=== PATIENT | male | born 1980 | race Caucasian/White ===

== ENCOUNTER 2016-11-14 12:36 | Emergency (ER) | payer BC, MEDICAID, OTHER ==
[2016-11-14] MEDS ORDERED: ALBUTEROL NEB 2.5 MG/3 ML INH STA (12:44)
--- NOTE | 2016-11-14 13:17 | ED Physician Documentation ---
PD HPI DYSPNEA - Stated complaint Stated Complaint: ASTHMA - Chief complaint Chief Complaint: Resp - History obtained from History obtained from: Patient - History of Present Illness Timing - onset: How many days ago (several) Timing - onset during: Rest Timing - duration: Days (several) Timing - details: Gradual onset Pain level max: 0 Pain level now: 0 Inciting event(s): Out of meds Improved by: Rest Worsened by: Exertion Associated symptoms: Cough, Wheezing. No: Fever, Chest pain / discomfort, Palpitations, Diaphoresis, Bilateral edema Similar symptoms before: Diagnosis (asthma) Recently seen: Not recently seen Review of Systems Constitutional: denies: Fever, Chills Nose: denies: Rhinorrhea / runny nose Throat: denies: Sore throat Cardiac: denies: Chest pain / pressure Respiratory: reports: Cough, Wheezing GI: denies: Abdominal Pain, Nausea, Vomiting, Diarrhea Skin: denies: Rash Musculoskeletal: denies: Neck pain, Back pain Neurologic: denies: Headache PD PAST MEDICAL HISTORY - Past Medical History Past Medical History: Yes Respiratory: Asthma - Past Surgical History Past Surgical History: No - Present Medications Home Medications: Ambulatory Orders Medication Instructions Recorded Confirmed Albuterol Sulf [Ventolin Hfa 2 puffs INH Q4HR PRN #1 inhaler 11/14/16 Inhaler] Prednisone 40 mg PO DAILY #10 tablet 11/14/16 - Allergies Allergies/Adverse Reactions: Allergies Allergy/AdvReac Type Severity Reaction Status Date / Time No Known Drug Allergies Allergy Verified 11/14/16 13:11 - Social History Does the pt smoke?: No Smoking Status: Never smoker Does the pt drink ETOH?: No Does the pt have substance abuse?: Yes Substance Use and Type: Marijuana PD ED PE NORMAL - Vitals Vital signs reviewed: Yes - General General: Alert and oriented X 3, No acute distress, Well developed/nourished - HEENT HEENT: PERRL, Moist mucous membranes - Neck Neck: Supple, no meningeal sign - Cardiac Cardiac: RRR, Strong equal pulses - Respiratory Respiratory: No respiratory distress, Other (wheezing) - Abdomen Abdomen: Soft, Non tender, Non distended - Derm Derm: Warm and dry - Extremities Extremities: No edema, No calf tenderness / cord - Neuro Neuro: Alert and oriented X 3 - Psych Psych: Normal mood, Normal affect Results - Vitals Vitals: Vital Signs - 24 hr 11/14/16 11/14/16 11/14/16 12:45 13:10 14:20 Temperature 37.4 C Heart Rate 69 76 87 Respiratory 18 16 16 Rate Blood Pressure 160/92 H O2 Saturation 100 11/14/16 15:27 Temperature 36.6 C Heart Rate 77 Respiratory 20 Rate Blood Pressure 139/88 H O2 Saturation 99 Oxygen O2 Source Room air - Rads (name of study) cxr Radiology: Prelim report reviewed, EMP read contemporaneously, See rad report ( Bilateral central bronchial wall thickening could be compatible with reactive airways disease or bronchitis. ) PD MEDICAL DECISION MAKING - ED course Complexity details: reviewed results, re-evaluated patient, considered differential, d/w patient, d/w family ED course: Patient is a 36-year-old male who presents to the emergency department with an acute asthma exacerbation. Given prednisone and nebulizer treatments here. No acute findings on chest x-ray. Breathing improved. Patient is well-appearing, nontoxic. Afebrile. No hypoxia. We will refill his inhaler and place on steroids for the next few days. We will have him follow-up with his doctor for further evaluation and care. Patient counseled regarding signs and symptoms for which I believe and urgent re-evaluation would be necessary. Patient with good understanding of and agreement to plan and is comfortable going home at this time This document was made in part using voice recognition software. While efforts are made to proofread this document, sound alike and grammatical errors may occur. Departure - Departure Disposition: 01 Home, Self Care Clinical Impression: Asthma Qualifiers: Asthma severity: unspecified severity Asthma complication type: with acute exacerbation Qualified Code(s): J45.901 - Unspecified asthma with (acute) exacerbation Condition: Good Instructions: ED Reactive Airway Disease Follow-Up: your,doctor in 1 week [Other] Prescriptions: Albuterol Sulf [Ventolin Hfa Inhaler] 2 puffs INH Q4HR PRN #1 inhaler PRN Reason: Wheezing Prednisone 40 mg PO DAILY #10 tablet Comments: Return if you worsen. Take the prednisone at home and use the inhaler as needed. This should improve over the next 24 hours. Discharge Date/Time: 11/14/16 15:27
[2016-11-14] MEDS ORDERED: IPRATROPIUM/ALBUTEROL 3 ML NEB INH STA (13:28)
[2016-11-14] MEDS ORDERED: predniSONE 20 MG TABLET PO STA (13:28)
--- NOTE | 2016-11-14 15:10 | XRAY Preliminary Report ---
Exam: XR Chest 2 View PA/LAT IMPRESSION: 1. Bilateral central bronchial wall thickening could be compatible with reactive airways disease or b ronchitis. [facility] SITE ID: [id number]
--- NOTE | 2016-11-14 15:13 | XRAY Report ---
EXAM: CHEST RADIOGRAPHY EXAM DATE: 11/14/2016 02:58 PM. CLINICAL HISTORY: Cough, wheeze. COMPARISON: 03/04/2010. TECHNIQUE: 2 views. FINDINGS: Lungs/Pleura: Bilateral central bronchial wall thickening could be compatible with reactive airways d isease or bronchitis. No evidence for pneumonia. No pleural effusions or pneumothorax. Mediastinum: Heart and mediastinal contours are unremarkable. Other: None. IMPRESSION: 1. Bilateral central bronchial wall thickening could be compatible with reactive airways disease or b ronchitis. [facility] Referring Provider Line: [phone] SITE ID: [id number]
[2016-11-14 15:29] VITALS: BP 139/88
== END 2016-11-14 15:27 | disposition home or self-care (01) ==
LOC: ED 12:36
DX: J45.901 Unspecified asthma with (acute) exacerbation (principal)
CPT/HCPCS: 71020; 94640; 99283; J7512; J7613; J7620

== ENCOUNTER 2020-07-24 07:00 | Outpatient (CLI) | payer MEDICAID ==
[2020-07-24 20:48] LABS: HCT - HEMATOCRIT 43.7 % (42.0-52.0); HGB - HEMOGLOBIN 14.3 g/dL (14.0-18.0); MEAN CORPUSCULAR HEMOGLOBIN 28.2 pg (27.0-31.0); MEAN CORPUSCULAR HGB CONC 32.7 g/dL (32.0-36.0); MEAN CORPUSCULAR VOLUME 86.2 fL (80.0-94.0); MEAN PLATELET VOLUME 9.7 fL (7.4-11.4); RED BLOOD COUNT 5.07 10^6/uL (4.70-6.10); RED CELL DISTRIBUTION WIDTH 11.7 % (12.0-15.0); WHITE BLOOD COUNT 11.4 x10^3/uL (4.8-10.8)
[2020-07-24 20:57] LABS: CRP - C-REACTIVE PROTEIN 13.2 mg/dL (0-1.0)
[2020-07-24 21:00] LABS: URIC ACID 3.4 mg/dL (2.6-7.2)
[2020-07-24 21:07] LABS: RHEUMATOID FACTOR NEGATIVE (Negative)
[2020-07-27 13:17] LABS: ANA SCREEN NEGATIVE (NEGATIVE)
[2020-07-27 15:07] LABS: DNA (DS) ANTIBODY <1 IU/mL
[2020-07-27 21:36] LABS: CYCLIC CITRULL PEPTIDE CCP IGG <16 UNITS
== END 2020-07-24 23:59 | disposition home or self-care (01) ==
LOC: LAB.N 07:00
PROVIDERS: ATTEND Family Medicine
DX: M25.50 Pain in unspecified joint (principal)
CPT/HCPCS: 36415; 84550; 85025; 85027; 85651; 86038; 86140; 86200; 86225; 86430

== ENCOUNTER 2020-07-27 11:22 | Emergency (ER) | payer MEDICAID ==
--- OUTSIDE RECORDS SUMMARY | 2020-07-27 11:26 | EXTERNAL MEDICAL SUMMARY RPT | Continuity of Care Document ---
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 Anastasiya Unavailable Unavailable Problems date description facility [id number] HEIDE SCREEN WITH REFLEX TITER & PANEL A ll 84744336 CBC W/O Diff/Plt All [id number] CRP All 95495245 DNA (ds) ANTIBODY All [id number] Joint pain All 58897096 Pain in joint, site unspecified All 90300211 RHEUMATOID FACTOR All 96488893 Anti CCP All 42876966 Sed Rate All 19083253 Never smoker All 19812528 Pain in unspecified joint All 79466631 Uric Acid All 80023337 Inflammatory polyarthropathy All 34128475 Unspecified inflammatory polyarthropath y All Medications date description facility [id number] [facility] All [id number] M[facility]OX[facility] All [id number] [facility] SUL[facility] All 51098481 [facility] All [id number] MELOXICAM All 71227461 ALBUTEROL SULFATE All 03394614 [facility] All 50469875 MELOXICAM All 41560289 ALBUTEROL SULFATE All 67748536 [facility] All 53776021 MELOXICAM All 83764386 ALBUTEROL SULFATE All 55485047 [facility] All [id number] MELOXICAM All 76649525 ALBUTEROL SULFATE All 04258605 [facility] All [id number] MELOXICAM All 65186683 ALBUTEROL SULFATE All Results test status date ordered by attending specimen armond e T unknown 57377064 unknown unknown unknown [id number]_NZKBN unknown 33707019 unknown unknown unknown IN T unknown 57930908 unknown unknown unknown T unknown 38730095 unknown unknown unknown T unknown 70134508 unknown unknown unknown T unknown 50618563 unknown unknown unknown T unknown 22733040 unknown unknown unknown T unknown 81533504 unknown unknown unknown T unknown 45755616 unknown unknown unknown T unknown 70968418 unknown unknown unknown T unknown 92933762 unknown unknown unknown T unknown 85903004 unknown unknown unknown T unknown 58519489 unknown unknown unknown T unknown 60074590 unknown unknown unknown red_blood_cell_distrib unknown 74799130 unknown unknown unknown ution_width mean_corpuscular_hemog unknown 33863053 unknown unknown unknown lobin_RBC mean_corpuscular_hemog unknown 33040340 unknown unknown unknown lobin_concentration_rbc C_reactive_protein_Mas unknown 70789737 unknown unknown unknown s_volume_in_Serum_or_Pl asma C-reactive_protein_ser unknown 40046790 unknown unknown unknown um mean_platelet_volume unknown 99081433 unknown unknown un known Urate_Mass_volume_in_S unknown 90221861 unknown unknown unknown erum_or_Plasma mean_corpuscular_volum unknown 84049637 unknown unknown unknown e_RBC Erythrocyte_sedimentat unknown 48604510 unknown unknown unknown ion_rate_by_Westergren_ method Hematocrit_Volume_Frac unknown 12221999 unknown unknown unknown tion_of_Blood_by_Automa ted_count uric_acid_serum unknown 88300434 unknown unknown unknown erythrocyte_sedimentat unknown 85069175 unknown unknown unknown ion_rate hematocrit_blood unknown 63373613 unknown unknown unknow n hemoglobin_blood unknown 41357036 unknown unknown unknow n platelet_count unknown 37228645 unknown unknown unknown Leukocytes_volume_in_B unknown 41648097 unknown unknown unknown lood_by_Automated_count erythrocyte_RBC_count unknown 25809966 unknown unknown u nknown leukocyte_count_blood unknown 62576932 unknown unknown u nknown Hemoglobin_Mass_volume unknown 69341079 unknown unknown unknown _in_Blood Platelet_mean_volume_E unknown 19201547 unknown unknown unknown ntitic_volume_in_Blood_ by_Rees-Cora Platelets_volume_in_Bl unknown 20849398 unknown unknown unknown ood_by_Automated_count MCH_Entitic_mass_by_Au unknown 36033251 unknown unknown unknown tomated_count MCV_Entitic_volume_by_ unknown 15445323 unknown unknown unknown Automated_count Erythrocyte_distributi unknown 12071517 unknown unknown unknown on_width_Ratio_by_Autom ated_count Erythrocytes_volume_in unknown 33443620 unknown unknown unknown _Blood_by_Automated_cou nt T unknown 08096312 unknown unknown unknown NVG_-_B-SZKMZZZS_OPYKN unknown 90413660 unknown unknown unknown IN T unknown 29918223 unknown unknown unknown T unknown 86132671 unknown unknown unknown T unknown 48231772 unknown unknown unknown T unknown 44855401 unknown unknown unknown T unknown 51975431 unknown unknown unknown T unknown 35563685 unknown unknown unknown T unknown 70761200 unknown unknown unknown T unknown 46574218 unknown unknown unknown T unknown 84776402 unknown unknown unknown T unknown 66999709 unknown unknown unknown T unknown 09273507 unknown unknown unknown T unknown 61001493 unknown unknown unknown red_blood_cell_distrib unknown 18581711 unknown unknown unknown ution_width mean_corpuscular_hemog unknown 02075023 unknown unknown unknown lobin_RBC mean_corpuscular_hemog unknown 76867200 unknown unknown unknown lobin_concentration_rbc C_reactive_protein_Mas unknown 57058960 unknown unknown unknown s_volume_in_Serum_or_Pl asma C-reactive_protein_ser unknown 86534474 unknown unknown unknown um mean_platelet_volume unknown 17001346 unknown unknown un known Urate_Mass_volume_in_S unknown 94833928 unknown unknown unknown erum_or_Plasma mean_corpuscular_volum unknown 85331358 unknown unknown unknown e_RBC Erythrocyte_sedimentat unknown 77796789 unknown unknown unknown ion_rate_by_Westergren_ method Hematocrit_Volume_Frac unknown 18197344 unknown unknown unknown tion_of_Blood_by_Automa ted_count uric_acid_serum unknown 12386884 unknown unknown unknown erythrocyte_sedimentat unknown 64595986 unknown unknown unknown ion_rate hematocrit_blood unknown 52385957 unknown unknown unknow n hemoglobin_blood unknown 73376939 unknown unknown unknow n platelet_count unknown 54622645 unknown unknown unknown Leukocytes_volume_in_B unknown 67793632 unknown unknown unknown lood_by_Automated_count erythrocyte_RBC_count unknown 89685208 unknown unknown u nknown leukocyte_count_blood unknown 09396419 unknown unknown u nknown Hemoglobin_Mass_volume unknown 18406563 unknown unknown unknown _in_Blood Platelet_mean_volume_E unknown 72715036 unknown unknown unknown ntitic_volume_in_Blood_ by_Rees-Cora Platelets_volume_in_Bl unknown 80086108 unknown unknown unknown ood_by_Automated_count MCH_Entitic_mass_by_Au unknown 45630088 unknown unknown unknown tomated_count MCV_Entitic_volume_by_ unknown 87500644 unknown unknown unknown Automated_count Erythrocyte_distributi unknown 20200724 unknown unknown unknown on_width_Ratio_by_Autom ated_count Erythrocytes_volume_in unknown 20200724 unknown unknown unknown _Blood_by_Automated_cou nt facility observation status value reference units lab abnor mal line range code notes All T unknown 13.2 unknown mg/dL CRP unknown unkn own All PRH_-_S-ADYQQ unknown 13.2 unknown mg/dL CRP_W unknow n unknown IVE_PROTEIN GH_ All T unknown 45 unknown mm/h ESR unknown unkn own All T unknown 43.7 unknown % HCT unknown unkn own All T unknown 14.3 unknown g/dL HGB unknown unkn own All T unknown 28.2 unknown pg MCH unknown unkn own All T unknown 32.7 unknown g/dL MCHC unknown unkn own All T unknown 86.2 unknown fL MCV unknown unkn own All T unknown 9.7 unknown fL MPV unknown unkn own All T unknown 487 10 unknown PLT unknown unkn own 3/UL All T unknown 5.07 unknown RBC unknown unkn own 10 6/UL All T unknown 11.7 unknown % RDW unknown unkn own All T unknown 3.4 unknown mg/dL URIC unknown unkn own All T unknown 11.4 unknown WBC unknown unkn own X10 3/UL All red_blood_cel unknown 11.7 unknown % _1030 unknow n unknown l_distribution _width All mean_corpuscu unknown 28.2 unknown pg _1031 unknow n unknown lar_hemoglobin _RBC All mean_corpuscu unknown 32.7 unknown g/dL _1702 unknow n unknown lar_hemoglobin 9 _concentration _rbc All C_reactive_pr unknown 13.2 unknown mg/dL _1988 unknow n unknown otein_Mass_vol -5 ume_in_Serum_o r_Plasma All C-reactive_pr unknown 13.2 unknown mg/dL _2704 unknow n unknown otein_serum All mean_platelet unknown 9.7 unknown fL _2784 unknow n unknown _volume All Urate_Mass_vo unknown 3.4 unknown mg/dL _3084 unknow n unknown lume_in_Serum_ -1 or_Plasma All mean_corpuscu unknown 86.2 unknown fL _315 unknow n unknown lar_volume_RBC All Erythrocyte_s unknown 45 unknown mm/h _4537 unknow n unknown edimentation_r -7 ate_by_Westerg ren_method All Hematocrit_Vo unknown 43.7 unknown % _4544 unknow n unknown lume_Fraction_ -3 of_Blood_by_Au tomated_count All uric_acid_ser unknown 3.4 unknown mg/dL _46 unknow n unknown um All erythrocyte_s unknown 45 unknown mm/h _63 unknow n unknown edimentation_r ate All hematocrit_bl unknown 43.7 unknown % _64 unknow n unknown ood All hemoglobin_bl unknown 14.3 unknown g/dL _65 unknow n unknown ood All platelet_coun unknown 487 10 unknown _66 unknow n unknown t 3/UL All Leukocytes_vo unknown 11.4 unknown _6690 unknow n unknown lume_in_Blood_ X10 -2 by_Automated_c 3/UL ount All erythrocyte_R unknown 5.07 unknown _67 unknow n unknown BC_count 10 6/UL All leukocyte_cou unknown 11.4 unknown _68 unknow n unknown nt_blood X10 3/UL All Hemoglobin_Ma unknown 14.3 unknown g/dL _718- unknow n unknown ss_volume_in_B 7 lood All Platelet_mean unknown 9.7 unknown fL _776- unknow n unknown _volume_Entiti 5 c_volume_in_Bl ood_by_Rees-Ec ker All Platelets_vol unknown 487 10 unknown _777- unknow n unknown ume_in_Blood_b 3/UL 3 y_Automated_co unt All MCH_Entitic_m unknown 28.2 unknown pg _785- unknow n unknown ass_by_Automat 6 ed_count All MCV_Entitic_v unknown 86.2 unknown fL _787- unknow n unknown olume_by_Autom 2 ated_count All Erythrocyte_d unknown 11.7 unknown % _788- unknow n unknown istribution_wi 0 dth_Ratio_by_A utomated_count All Erythrocytes_ unknown 5.07 unknown _789- unknow n unknown volume_in_Bloo 10 6/UL 8 d_by_Automated _count All T unknown 13.2 unknown mg/dL CRP unknown unkn own All BWL_-_G-BMNDF unknown 13.2 unknown mg/dL CRP_W unknow n unknown IVE_PROTEIN GH_ All T unknown 45 unknown mm/h ESR unknown unkn own All T unknown 43.7 unknown % HCT unknown unkn own All T unknown 14.3 unknown g/dL HGB unknown unkn own All T unknown 28.2 unknown pg MCH unknown unkn own All T unknown 32.7 unknown g/dL MCHC unknown unkn own All T unknown 86.2 unknown fL MCV unknown unkn own All T unknown 9.7 unknown fL MPV unknown unkn own All T unknown 487 10 unknown PLT unknown unkn own 3/UL All T unknown 5.07 unknown RBC unknown unkn own 10 6/UL All T unknown 11.7 unknown % RDW unknown unkn own All T unknown 3.4 unknown mg/dL URIC unknown unkn own All T unknown 11.4 unknown WBC unknown unkn own X10 3/UL All red_blood_cel unknown 11.7 unknown % _1030 unknow n unknown l_distribution _width All mean_corpuscu unknown 28.2 unknown pg _1031 unknow n unknown lar_hemoglobin _RBC All mean_corpuscu unknown 32.7 unknown g/dL _1702 unknow n unknown lar_hemoglobin 9 _concentration _rbc All C_reactive_pr unknown 13.2 unknown mg/dL _1988 unknow n unknown otein_Mass_vol -5 ume_in_Serum_o r_Plasma All C-reactive_pr unknown 13.2 unknown mg/dL _2704 unknow n unknown otein_serum All mean_platelet unknown 9.7 unknown fL _2784 unknow n unknown _volume All Urate_Mass_vo unknown 3.4 unknown mg/dL _3084 unknow n unknown lume_in_Serum_ -1 or_Plasma All mean_corpuscu unknown 86.2 unknown fL _315 unknow n unknown lar_volume_RBC All Erythrocyte_s unknown 45 unknown mm/h _4537 unknow n unknown edimentation_r -7 ate_by_Westerg ren_method All Hematocrit_Vo unknown 43.7 unknown % _4544 unknow n unknown lume_Fraction_ -3 of_Blood_by_Au tomated_count All uric_acid_ser unknown 3.4 unknown mg/dL _46 unknow n unknown um All erythrocyte_s unknown 45 unknown mm/h _63 unknow n unknown edimentation_r ate All hematocrit_bl unknown 43.7 unknown % _64 unknow n unknown ood All hemoglobin_bl unknown 14.3 unknown g/dL _65 unknow n unknown ood All platelet_coun unknown 487 10 unknown _66 unknow n unknown t 3/UL All Leukocytes_vo unknown 11.4 unknown _6690 unknow n unknown lume_in_Blood_ X10 -2 by_Automated_c 3/UL ount All erythrocyte_R unknown 5.07 unknown _67 unknow n unknown BC_count 10 6/UL All leukocyte_cou unknown 11.4 unknown _68 unknow n unknown nt_blood X10 3/UL All Hemoglobin_Ma unknown 14.3 unknown g/dL _718- unknow n unknown ss_volume_in_B 7 lood All Platelet_mean unknown 9.7 unknown fL _776- unknow n unknown _volume_Entiti 5 c_volume_in_Bl ood_by_Rees-Ec ker All Platelets_vol unknown 487 10 unknown _777- unknow n unknown ume_in_Blood_b 3/UL 3 y_Automated_co unt All MCH_Entitic_m unknown 28.2 unknown pg _785- unknow n unknown ass_by_Automat 6 ed_count All MCV_Entitic_v unknown 86.2 unknown fL _787- unknow n unknown olume_by_Autom 2 ated_count All Erythrocyte_d unknown 11.7 unknown % _788- unknow n unknown istribution_wi 0 dth_Ratio_by_A utomated_count All Erythrocytes_ unknown 5.07 unknown _789- unknow n unknown volume_in_Bloo 10 6/UL 8 d_by_Automated _count Vital Signs date measurement value source 20200724 BMI 25.68 kg/m2 20200724 BP_diastolic 86 mm[Hg] 20200724 BP_systolic 122 mm[Hg] 20200724 heart_rate 96 /min 20200724 height_metric 186.69 cm 20200724 height_standard 73.5 in 20200724 respiration_rate 14 /min 20200724 temperature_metric 36.78 C 20200724 temperature_standard 98.2 F 20200724 weight_metric 89.18 kg 20200724 weight_standard 196.6 lb 20200724 BMI 25.68 kg/m2 20200724 BP_diastolic 86 mm[Hg] 20200724 BP_systolic 122 mm[Hg] 20200724 heart_rate 96 /min 20200724 height_metric 186.69 cm 20200724 height_standard 73.5 in 20200724 respiration_rate 14 /min 20200724 temperature_metric 36.78 C 20200724 temperature_standard 98.2 F 20200724 weight_metric 89.18 kg 20200724 weight_standard 196.6 lb 20200724 BMI 25.68 kg/m2 20200724 BP_diastolic 86 mm[Hg] 20200724 BP_systolic 122 mm[Hg] 20200724 heart_rate 96 /min 20200724 height_metric 186.69 cm 20200724 height_standard 73.5 in 20200724 respiration_rate 14 /min 20200724 temperature_metric 36.78 C 20200724 temperature_standard 98.2 F 20200724 weight_metric 89.18 kg 20200724 weight_standard 196.6 lb Social History date description facility [id number]
--- OUTSIDE RECORDS SUMMARY | 2020-07-27 11:50 | EXTERNAL MEDICAL SUMMARY RPT | Continuity of Care Document ---
:1980 Demographics Phone Unavailable Preferred Language Unknown Marital Status Unknown Adventism Affiliation Unknown Race Unknown Ethnic Group Unknown Author Organization [facility] Address [address] [id number] Phone Care Team Providers Name Role Phone Daria CEVALLOS, Unavailable Unavailable Anastasiya, Test Results Unavailable Unavailable Phill VIZCAINO, Unavailable Unavailable Problems date description facility [id number] HEIDE SCREEN WITH REFLEX TITER & PANEL A ll 23683013 CBC W/O Diff/Plt All 23676333 CRP All 37863316 DNA (ds) ANTIBODY All [id number] Joint pain All [id number] Pain in joint, site unspecified All 33414207 RHEUMATOID FACTOR All 32615364 Anti CCP All 00942112 Sed Rate All 21512575 Never smoker All 58790476 Pain in unspecified joint All 58252470 Uric Acid All 13094175 Inflammatory polyarthropathy All 61820908 Unspecified inflammatory polyarthropath y All Medications date description facility [id number] [facility] All [id number] [facility] All 42552148 [facility] All 15981094 [facility] All 15221793 [facility] All 39930854 ALBUTER[facility] SUL[facility] All 65201619 [facility] All 86783813 MELOXICAM All 23629735 ALBUTEROL SULFATE All 62814381 [facility] All 37513269 MELOXICAM All 71716861 ALBUTEROL SULFATE All 72130168 [facility] All 31156841 MELOXICAM All 17446674 ALBUTEROL SULFATE All 59411551 [facility] All 04939136 MELOXICAM All 99480262 ALBUTEROL SULFATE All Results test status date ordered by attending specimen armond e T unknown [id number] unknown unknown unknown MOJ_-_I-IUGZVVEQ_AAYHU unknown 29185097 unknown unknown unknown IN T unknown 11267561 unknown unknown unknown T unknown 76092042 unknown unknown unknown T unknown 31504242 unknown unknown unknown T unknown 96316421 unknown unknown unknown T unknown 82260795 unknown unknown unknown T unknown 87237375 unknown unknown unknown T unknown 25791338 unknown unknown unknown T unknown 26204500 unknown unknown unknown T unknown 27042172 unknown unknown unknown T unknown 63241874 unknown unknown unknown T unknown 93946971 unknown unknown unknown T unknown 50077925 unknown unknown unknown red_blood_cell_distrib unknown 17022310 unknown unknown unknown ution_width mean_corpuscular_hemog unknown 02567311 unknown unknown unknown lobin_RBC mean_corpuscular_hemog unknown 52459010 unknown unknown unknown lobin_concentration_rbc C_reactive_protein_Mas unknown 40162716 unknown unknown unknown s_volume_in_Serum_or_Pl asma C-reactive_protein_ser unknown 59512601 unknown unknown unknown um mean_platelet_volume unknown 45483707 unknown unknown un known Urate_Mass_volume_in_S unknown 76818166 unknown unknown unknown erum_or_Plasma mean_corpuscular_volum unknown 54695756 unknown unknown unknown e_RBC Erythrocyte_sedimentat unknown 75144500 unknown unknown unknown ion_rate_by_Westergren_ method Hematocrit_Volume_Frac unknown 61248676 unknown unknown unknown tion_of_Blood_by_Automa ted_count uric_acid_serum unknown 39626428 unknown unknown unknown erythrocyte_sedimentat unknown 22731763 unknown unknown unknown ion_rate hematocrit_blood unknown 48013181 unknown unknown unknow n hemoglobin_blood unknown 57878909 unknown unknown unknow n platelet_count unknown 14250536 unknown unknown unknown Leukocytes_volume_in_B unknown 53941528 unknown unknown unknown lood_by_Automated_count erythrocyte_RBC_count unknown 27238037 unknown unknown u nknown leukocyte_count_blood unknown 31216167 unknown unknown u nknown Hemoglobin_Mass_volume unknown 37548187 unknown unknown unknown _in_Blood Platelet_mean_volume_E unknown 98206084 unknown unknown unknown ntitic_volume_in_Blood_ by_Rees-Cora Platelets_volume_in_Bl unknown 96222979 unknown unknown unknown ood_by_Automated_count MCH_Entitic_mass_by_Au unknown 52621431 unknown unknown unknown tomated_count MCV_Entitic_volume_by_ unknown 96845568 unknown unknown unknown Automated_count Erythrocyte_distributi unknown 85777547 unknown unknown unknown on_width_Ratio_by_Autom ated_count Erythrocytes_volume_in unknown 76571470 unknown unknown unknown _Blood_by_Automated_cou nt T unknown 32785824 unknown unknown unknown RAE_-_D-VEALPBKV_ENMOQ unknown 11293462 unknown unknown unknown IN T unknown 45777808 unknown unknown unknown T unknown 47137827 unknown unknown unknown T unknown 97796997 unknown unknown unknown T unknown 16206770 unknown unknown unknown T unknown 60079163 unknown unknown unknown T unknown 73237929 unknown unknown unknown T unknown 21186284 unknown unknown unknown T unknown 56468365 unknown unknown unknown T unknown 87482980 unknown unknown unknown T unknown 78568575 unknown unknown unknown T unknown 61588178 unknown unknown unknown T unknown 56315175 unknown unknown unknown red_blood_cell_distrib unknown 68369913 unknown unknown unknown ution_width mean_corpuscular_hemog unknown 24228939 unknown unknown unknown lobin_RBC mean_corpuscular_hemog unknown 77772594 unknown unknown unknown lobin_concentration_rbc C_reactive_protein_Mas unknown 23284227 unknown unknown unknown s_volume_in_Serum_or_Pl asma C-reactive_protein_ser unknown 42144878 unknown unknown unknown um mean_platelet_volume unknown 60918298 unknown unknown un known Urate_Mass_volume_in_S unknown 10032313 unknown unknown unknown erum_or_Plasma mean_corpuscular_volum unknown 07544052 unknown unknown unknown e_RBC Erythrocyte_sedimentat unknown 89650010 unknown unknown unknown ion_rate_by_Westergren_ method Hematocrit_Volume_Frac unknown 36931495 unknown unknown unknown tion_of_Blood_by_Automa ted_count uric_acid_serum unknown 43442297 unknown unknown unknown erythrocyte_sedimentat unknown 52952641 unknown unknown unknown ion_rate hematocrit_blood unknown 30935620 unknown unknown unknow n hemoglobin_blood unknown 03092461 unknown unknown unknow n platelet_count unknown 13622373 unknown unknown unknown Leukocytes_volume_in_B unknown 60934680 unknown unknown unknown lood_by_Automated_count erythrocyte_RBC_count unknown 38334905 unknown unknown u nknown leukocyte_count_blood unknown 59976482 unknown unknown u nknown Hemoglobin_Mass_volume unknown 47547742 unknown unknown unknown _in_Blood Platelet_mean_volume_E unknown 58649296 unknown unknown unknown ntitic_volume_in_Blood_ by_Rees-Cora Platelets_volume_in_Bl unknown 85094278 unknown unknown unknown ood_by_Automated_count MCH_Entitic_mass_by_Au unknown 22707227 unknown unknown unknown tomated_count MCV_Entitic_volume_by_ unknown 20200724 unknown unknown unknown Automated_count Erythrocyte_distributi unknown 20200724 unknown unknown unknown on_width_Ratio_by_Autom ated_count Erythrocytes_volume_in unknown 20200724 unknown unknown unknown _Blood_by_Automated_cou nt facility observation status value reference units lab abnor mal line range code notes All T unknown 13.2 unknown mg/dL CRP unknown unkn own All OHJ_-_Y-DXEAN unknown 13.2 unknown mg/dL CRP_W unknow n [...] unknown mg/dL CRP unknown unkn own All [id number]_D-[id number] unknown 13.2 unknown mg/dL CRP_W unknow n [...] 196.6 lb Social History date description facility [id number]
--- NOTE | 2020-07-27 12:01 | ED Physician Documentation ---
History of Present Illness - Stated complaint Stated Complaint: SWELLING/RASH - Chief complaint Chief Complaint: General - Additonal information Additional information: 40-year-old male presents to the emergency department for evaluation of fever rash and joint pain. The patient reports that on about July 13, 2020 he began developing fevers up to 101. The fevers persisted through July 20. During this time the patient was drinking very large quantities of water up to 9 L a day. Though he has not had a fever since July 22 he began developing wrist swelling on his left side on the . And he also began to notice a rash on the back of his thighs and some left ankle pain including his Achilles tendon. The rash is progressed on his legs and now includes the dorsum of both feet. He has no history of similar. No recent travels. Denies bloody urine or stools. No history of diabetes, hypertension or arthritis. Does not take any scheduled medications. No recent travel. Patient did see Dr. Douglas in the walk-in clinic on 24 July at which time screening labs included a CBC, CRP and sed rate both of which were elevated. Review of Systems Constitutional: reports: Fever Eyes: reports: Reviewed and negative Ears: denies: Loss of hearing, Ear pain Nose: denies: Rhinorrhea / runny nose, Congestion, Epistaxis Throat: denies: Dental pain / toothache, Oral lesions / sores Cardiac: denies: Chest pain / pressure, Palpitations, Pedal edema, Calf pain GI: reports: Nausea. denies: Abdominal Pain, Vomiting, Hematemesis, Bloody / black stool : denies: Dysuria, Hematuria Skin: reports: Rash Musculoskeletal: reports: Extremity pain. denies: Neck pain, Back pain Neurologic: reports: Headache. denies: Generalized weakness, Numbness, Difficulty speaking, Near syncope, Syncope, Seizure, Confused, LOC PD PAST MEDICAL HISTORY - Past Medical History Past Medical History: Yes Respiratory: Asthma - Past Surgical History Past Surgical History: No - Present Medications Home Medications: Ambulatory Orders Medication Instructions Recorded Confirmed Albuterol Sulf [Ventolin Hfa 2 puffs INH Q4HR PRN #1 inhaler 11/14/16 07/27/20 Inhaler] Meloxicam [Mobic] 15 mg PO DAILY 07/27/20 07/27/20 Ondansetron HCl [Zofran] 4 mg PO Q6HR PRN 07/27/20 07/27/20 predniSONE [Deltasone] 40 mg PO DAILY 5 Days #10 tablet 07/27/20 - Allergies Allergies/Adverse Reactions: Allergies Allergy/AdvReac Type Severity Reaction Status Date / Time No Known Drug Allergies Allergy Verified 07/27/20 11:40 - Social History Does the pt smoke?: No Smoking Status: Never smoker Does the pt drink ETOH?: No Does the pt have substance abuse?: No - Immunizations Immunizations are current?: Yes PD ED PE EXPANDED - General General: Alert, No acute distress, Well developed/nourished - HEENT HEENT: PERRL, EOMI, Moist mucous membranes, Pharynx normal. No: Soft palate petecchiae - Neck Neck: Supple w/out meningeal sx, No tenderness. No: Adenopathy - Cardiac Cardiac: Regular Rate, Radial strong equal, Pedal strong equal, Cap refill < 2 sec. No: Murmur Present - Respiratory Respiratory: Clear to ausultation john. No: Distress, Labored - Abdomen Abdomen: Normal Bowel sounds. No: Tender to palpation, Hepatomegaly, Splenomegaly - Back Back: Normal exam. No: Vertebral tenderness, Soft tissue tenderness - Derm Derm: Normal color, Warm and dry, Petecchiae - Extremities Extremities: Tenderness, Left ankle (tenderness palpation of right achilles), Right foot (Firm cyst dorsum right foot lateral side proximal fourth fifth metatarsals.), Pedal Pulses Present, Other (Generalized petechial rash on dorsum of foot that extends up the lower legs and thighs but begins to become more sparing as it ascends. No rash in mouth hands torso face or neck.). No: Deformity, Right calf TTP/cord, Left calf TTP/cord - Neuro Neuro: Alert and Oriented X 3, CNII-XII intact - GCS Eye Opening: Spontaneous Motor: Obeys Commands Verbal: Oriented Total: 15 Results - Vitals Vitals: Vital Signs - 24 hr 07/27/20 11:35 Temperature 36.9 C Heart Rate 92 Respiratory 16 Rate Blood Pressure 139/87 H O2 Saturation 97 Oxygen O2 Source Room air - Labs Labs: Laboratory Tests 07/27/20 07/27/20 07/27/20 12:06 12:06 12:06 WBC 8.0 RBC 4.86 Hgb 13.7 L Hct 42.0 MCV 86.4 MCH 28.2 MCHC 32.6 RDW 11.8 L Plt Count 521 H MPV 9.1 Neut # (Auto) 5.6 Lymph # (Auto) 1.4 L Erath # (Auto) 0.5 Eos # (Auto) 0.2 Baso # (Auto) 0.1 Absolute Nucleated RBC 0.00 Nucleated RBC % 0.0 ESR 46 H Sodium 139 Potassium 3.8 Chloride 102 Carbon Dioxide 28 Anion Gap 9.0 BUN 11 Creatinine 0.8 Estimated GFR (MDRD) 108 Glucose 105 H Calcium 8.9 Total Bilirubin 0.4 AST 19 ALT 29 Alkaline Phosphatase 55 C-Reactive Protein 6.8 H Total Protein 7.4 Albumin 3.6 Globulin 3.8 Albumin/Globulin Ratio 0.9 L Lipase 38 Urine Color Urine Clarity Urine pH Ur Specific Stanford Urine Protein Urine Glucose (UA) Urine Ketones Urine Occult Blood Urine Nitrite Urine Bilirubin Urine Urobilinogen Ur Leukocyte Esterase Ur Microscopic Review Urine Culture Comments 07/27/20 12:17 WBC RBC Hgb Hct MCV MCH MCHC RDW Plt Count MPV Neut # (Auto) Lymph # (Auto) Erath # (Auto) Eos # (Auto) Baso # (Auto) Absolute Nucleated RBC Nucleated RBC % ESR Sodium Potassium Chloride Carbon Dioxide Anion Gap BUN Creatinine Estimated GFR (MDRD) Glucose Calcium Total Bilirubin AST ALT Alkaline Phosphatase C-Reactive Protein Total Protein Albumin Globulin Albumin/Globulin Ratio Lipase Urine Color DARK YELLOW Urine Clarity CLEAR Urine pH 6.0 Ur Specific Stanford 1.025 Urine Protein NEGATIVE Urine Glucose (UA) NEGATIVE Urine Ketones NEGATIVE Urine Occult Blood NEGATIVE Urine Nitrite NEGATIVE Urine Bilirubin NEGATIVE Urine Urobilinogen 0.2 (NORMAL) Ur Leukocyte Esterase NEGATIVE Ur Microscopic Review NOT INDICATED Urine Culture Comments NOT INDICATED PD MEDICAL DECISION MAKING - ED course Complexity details: reviewed old records, reviewed results, re-evaluated patient, considered differential, d/w patient ED course: 40-year-old male presents to the emergency department for evaluation of a fever that lasted about a week and was then followed by multiple joint swelling and pains as well as a petechial rash on his lower extremities. He had been seen by Dr. Douglas in urgent care a few days ago and had an elevated sed rate and CRP. His RA testing was negative. On evaluation at this time patient feels well though he does have some aches in his ankles and wrist. The rash on the lower extremities has not progressed for the last 2 to 3 days. His vital signs are without focal abnormality. We did do screening CBC that showed no leukocytosis. He does have mild noted thrombocytosis. His CRP has decreased to 6 from 13 a few days ago. His sed rat e remains elevated at 46. HEIDE and C3 are pending. 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 I discussed this case with the patient. It is reassuring that he does not appear to have any renal involvement based on his electrolytes and his UA. However we will do a 5-day course of prednisone and have the patient follow-up closely with his primary care providers. He is to return immediately to the emergency department if the fevers worsen, he has a return of joint swelling or worsening of rash with any associated chest pain, headache or shortness of air. Departure - Departure Disposition: 01 Home, Self Care Clinical Impression: Vasculitis Condition: Stable Record reviewed to determine appropriate education?: Yes Instructions: ED HSP [facility]och Schonlein [facility] Prescriptions: predniSONE [Deltasone] 40 mg PO DAILY 5 Days #10 tablet Comments: Danis stewart were seen in the emergency department today for rash, multiple joint pains as well as the history of a fever. As we discussed I suspect that the cause of your symptoms is a vasculitis. This is an inflammation of blood vessels. 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 What is important about this is that there does not appear to be any brain or kidney involvement. At this time you can eat a regular diet, you do not need to have any special electrolyte replacement. In order to help your symptoms resolve sooner I have prescribed a 5-day course of prednisone. It is important that you see a primary care provider in follow-up in the next week. Your screening labs can be rechecked to ensure that they continue to improve. If at any point you have worsening symptoms, the rash develops in your mouth or throat, you have bloody urine or stools, suddenly severe headaches then please return immediately to the ER.
[2020-07-27 12:19] LABS: BASOPHILS # (AUTO) 0.1 10^3/uL (0.0-0.1); BASOPHILS % (AUTO) 1.3 %; EOSINOPHILS # (AUTO) 0.2 10^3/uL (0.0-0.7); EOSINOPHILS % (AUTO) 2.3 %; HGB - HEMOGLOBIN 13.7 g/dL (14.0-18.0); LYMPHOCYTES # (AUTO) 1.4 10^3/uL (1.5-3.5); LYMPHOCYTES % (AUTO) 17.3 %; MEAN CORPUSCULAR HEMOGLOBIN 28.2 pg (27.0-31.0); MEAN CORPUSCULAR HGB CONC 32.6 g/dL (32.0-36.0); MEAN CORPUSCULAR VOLUME 86.4 fL (80.0-94.0); MEAN PLATELET VOLUME 9.1 fL (7.4-11.4); MONOCYTES # (AUTO) 0.5 10^3/uL (0.0-1.0); MONOCYTES % (AUTO) 5.9 %; NEUTROPHILS # (AUTO) 5.6 10^3/uL (1.5-6.6); NEUTROPHILS % (AUTO) 69.7 %; PLT - PLATELET COUNT 521 10^3/uL (130-450); RED BLOOD COUNT 4.86 10^6/uL (4.70-6.10); RED CELL DISTRIBUTION WIDTH 11.8 % (12.0-15.0)
[2020-07-27 12:25] LABS: BILIRUBIN,URINE NEGATIVE (NEGATIVE); GLUCOSE, URINE (UA) NEGATIVE (NEGATIVE); KETONES,URINE (UA) NEGATIVE (NEGATIVE); LEUKOCYTE ESTERASE, URINE NEGATIVE (NEGATIVE); NITRITE,URINE NEGATIVE (NEGATIVE); OCCULT BLOOD,URINE NEGATIVE (NEGATIVE); PROTEIN,URINE NEGATIVE (NEGATIVE); UROBILINOGEN,URINE 0.2 (NORMAL) E.U./dL (NORMAL)
[2020-07-27 12:34] LABS: CLARITY,URINE CLEAR (CLEAR)
[2020-07-27 12:40] LABS: ALBUMIN 3.6 g/dL (3.2-5.5); ALBUMIN/GLOBULIN RATIO 0.9 (1.0-2.2); BILIRUBIN,TOTAL 0.4 mg/dL (0.2-1.0); CALCIUM 8.9 mg/dL (8.5-10.3); CREATININE 0.8 mg/dL (0.6-1.2); CRP - C-REACTIVE PROTEIN 6.8 mg/dL (0-1.0); POTASSIUM 3.8 mmol/L (3.5-5.0); TOTAL PROTEIN 7.4 g/dL (6.7-8.2)
[2020-07-27 13:57] VITALS: BP 133/91
[2020-07-29 15:02] LABS: ANA SCREEN NEGATIVE (NEGATIVE)
== END 2020-07-27 13:57 | disposition home or self-care (01) ==
LOC: ED 11:22
DX: L95.9 Vasculitis limited to the skin, unspecified (principal); D47.3 Essential (hemorrhagic) thrombocythemia
CPT/HCPCS: 36415; 80053; 81001; 81003; 83690; 85025; 85651; 86038; 86140; 86160; 86665; 87040; 87086; 99283; 99284

== ENCOUNTER 2022-12-13 08:00 | Outpatient (CLI) | payer MEDICAID | END 2022-12-13 23:59 | disposition home or self-care (01) | LOC: LAB.N 08:00 | PROVIDERS: ATTEND Family Medicine | DX: R19.7 Diarrhea, unspecified (principal) | CPT/HCPCS: 83993; 87045; 87046; 87329; 87427; 87493 ==

== ENCOUNTER 2023-02-03 06:19 | Day surgery (SDC) | payer OTHER ==
[2023-02-03] MEDS ORDERED: LACTATED RINGERS 1,000 ML IV ONE (06:31)
[2023-02-03] MEDS ORDERED: PROPOFOL 500 MG/50 ML 500 MG/50 ML VIAL ONE (07:06)
[2023-02-03] MEDS ORDERED: GLYCOPYRROLATE 1 MG/5 ML VIAL ONE (07:06)
--- NOTE | 2023-02-03 07:12 | ANESTHESIA ---
Pre-Anesthesia VS, & Labs - Diagnosis change in bowel habits - Procedure colonoscopy Vital Signs: Temp Pulse Resp BP Pulse Ox O2 Flow Rate 36.3 C L 79 14 131/71 H 99 02/03/23 06:32 02/03/23 06:32 02/03/23 06:32 02/03/23 06:32 02/03/23 06:32 Height: 6 ft 1 in Weight (kg): 101.8 kg Body Mass Index: 29.6 BMI Classification: Overweight - NPO >8 hours - Lab Results Lab results reviewed: Yes Home Medications and Allergies Meloxicam [Mobic] 15 mg PO DAILY 07/27/20 ondansetron HCL [Zofran] 4 mg PO Q6HR PRN 07/27/20 Allergies/Adverse Reactions: Allergies Allergy/AdvReac Type Severity Reaction Status Date / Time No Known Drug Allergies Allergy Verified 07/27/20 11:40 Anes History & Medical History - Anesthetic History Anesthesia Complications: reports: No previous complications Family history of Anesthesia Complications: Denies Family history of Malignant Hyperthermia: Denies - Medical History Cardiovascular: reports: None Pulmonary: reports: Asthma Gastrointestinal: reports: Chronic diarrhea Urinary: reports: None Neuro: reports: None Musculoskeletal: reports: None Endocrine/Autoimmune: reports: None Skin: reports: None Smoking Status: Never smoker Psychosocial: reports: No issues indicated Exam General: Alert, Oriented x3, Cooperative Dental: WNL Mouth Openin Fingerbreadth Neck Mobility: Normal Mallampati classification: II Thyromental Distance: 4-6 cm Respiratory: Lungs clear Cardiovascular: Regular rate Plan Anesthesia Type: General, MAC Consent for Procedure(s) Verified and Reviewed: Yes Code Status: Attempt Resuscitation ASA classification: 2-Mild systemic disease Is this case an emergency?: No
[2023-02-03] MEDS ORDERED: PROPOFOL 200 MG/20 ML VIAL IVP ONE (08:03)
[2023-02-03] MEDS ORDERED: LACTATED RINGERS 200 ML IV ONE ×4 (08:05)
[2023-02-03 08:35] VITALS: BP 119/77; O2SAT 98
--- NOTE | 2023-02-03 09:27 | OPERATIVE REPORT ---
Operative Report - General Procedure Date: 02/03/23 Planned Procedure: Diagnostic colonoscopy - Other Other Information/Narrative: General Surgery Brief Procedure Note (see "Provation" for details) Preop Diagnosis: Chronic diarrhea Postop Diagnosis: Donovan-colitis consistent with ulcerative colitis Procedure: Colonoscopy with random biopsies of the colon Recommendation: 1) Prednisone, 20mg PO BID for 4 days to gain control of the colonic inflammation and decrease his symptoms 2) Azulfadine, 500mg tabs, 2 tabs PO TID for 30 days with 3 refills 3) Continue to use Imodium as needed 4) Follow-up PCP in 7-10 days to review path report and to refer to gastroenterology for penitentiary management 5) Follow-up ED as needed. Emmanuel Rodriguez MD, FACS
--- NOTE | 2023-02-03 13:21 | ANESTHESIA POST OP EVALUATION ---
Anesthesia Post Eval - Post Anesthesia Eval Vitals: Last Vital Signs Temp 36.4 C L 02/03/23 08:31 Pulse 61 02/03/23 08:31 Resp 14 02/03/23 08:31 BP 119/77 02/03/23 08:31 Pulse Ox 98 02/03/23 08:31 O2 Flow Rate CV Function Including HR & BP: Stable Pain Control: Satisfactory Nausea & Vomiting: Negative Mental Status: Baseline Respiratory Status: Airway Patent Hydration Status: Satisfactory Anesthesia Complications: None
== END 2023-02-03 06:20 | disposition home or self-care (01) ==
LOC: SDS 06:19
PROVIDERS: ATTEND Surgery
PROC: 0DBE8ZX Excision of Large Intestine, Via Natural or Artificial Opening Endoscopic, Diagnostic (ICD-10-PCS; principal; 2023-02-03 07:30)
DX: K52.89 Other specified noninfective gastroenteritis and colitis (principal); K62.89 Other specified diseases of anus and rectum; J45.909 Unspecified asthma, uncomplicated
CPT/HCPCS: 45380; J7120